=== PATIENT | female | born 1985 | race Caucasian/White ===

== ENCOUNTER 2018-08-25 12:59 | Emergency (ER) | payer MEDICAID ==
[2018-08-25 13:04] VITALS: BP 142/79
--- NOTE | 2018-08-25 13:16 | ER Document Report ---
ED General - General Chief Complaint: Urinary Frequency Stated Complaint: URINATION PROBLEMS Time Seen by Provider: 08/25/18 13:09 Primary Care Provider: LEW STRICKLAND CNM [NO LOCAL MD] - Follow up as needed Mode of Arrival: Ambulatory Information source: Patient Notes: Patient presents today with complaints of possible UTI. She reports she experienced urinary frequency previously but now she is having some hesitancy. She really has to make herself go. Denies pain with void denies fever vomiting diarrhea. Reports she is 8 weeks . G1, P0. Complains of some abdominal cramping. Denies vaginal pain denies vaginal discharge denies vaginal bleeding. Reports 2 weeks ago when she wiped herself she did notice some blood at that time but none since that time. She has been to the health department is scheduled to be seen again next week. Denies trauma. Denies back and flank pain. TRAVEL OUTSIDE OF THE [place] IN LAST 30 DAYS: No - HPI Onset: Other Onset/Duration: Persistent Quality of pain: Cramping Severity: Mild Pain Level: 2 Associated symptoms: None Exacerbated by: Denies Relieved by: Denies Similar symptoms previously: No Recently seen / treated by doctor: No - Related Data Allergies/Adverse Reactions: No Known Allergies Allergy (Verified 08/25/18 13:00) Past Medical History - General Information source: Patient - Social History Smoking Status: Current Every Day Smoker Chew tobacco use (# tins/day): No Frequency of alcohol use: None Drug Abuse: None Lives with: Family Family History: None Patient has suicidal ideation: No Patient has homicidal ideation: No - Medical History Medical History: Negative Renal/ Medical History: Denies: Hx Peritoneal Dialysis Surgical Hx: Negative Review of Systems - Review of Systems Notes: Review HPI for review of systems., All other systems negative Physical Exam - Vital signs Vitals: Temp Pulse Resp BP Pulse Ox 98.2 F 75 18 142/79 H 98 08/25/18 13:03 08/25/18 13:03 08/25/18 13:03 08/25/18 13:03 08/25/18 13:03 - Notes Notes: PHYSICAL EXAMINATION: GENERAL: Well-appearing and in no acute distress HEAD: Atraumatic, normocephalic. EYES: Pupils equal round , extraocular movements intact, sclera anicteric, conjunctiva are normal. ENT: nares patent, Moist mucous membranes. NECK: Normal range of motion, supple without lymphadenopathy LUNGS: CTAB and equal. No wheezes rales or rhonchi. HEART: Regular rate and rhythm without murmurs ABDOMEN: Soft, no tenderness. No guarding, no rebound BACK: Denies back pain, denies flank pain, no pain with palpations EXTREMITIES: Normal range of motion, NEUROLOGICAL: Cranial nerves grossly intact. Normal sensory/motor exams. PSYCH: Normal mood, normal affect. SKIN: Warm, Dry, normal turgor, no rashes or lesions noted Course - Re-evaluation Re-evalutation: 08/25/18 15:16 Labs unremarkable UA negative. Ultrasound shows 5-week 6-day gestational sac, no embryo, subchorionic bleed, Patient instructed on ultrasound results, she was instructed on negative urinary tract infection. She patient was instructed on the importance of follow-up for the repeat hCG. Patient does have an appointment with the health department August 31. She verbalized understanding to all instructions. Dictation of this chart was performed using voice recognition software; therefo re, there may be some unintended grammatical errors. - Vital Signs Vital signs: Temp Pulse Resp BP Pulse Ox 98.2 F 75 18 142/79 H 98 08/25/18 13:03 08/25/18 13:03 08/25/18 13:03 08/25/18 13:03 08/25/18 13:03 - Laboratory Result Diagrams: 08/25/18 13:31 08/25/18 13:31 Laboratory results interpreted by me: 08/25/18 08/25/18 13:31 13:31 AST 40 H Beta HCG, Quant 5072.70 H Urine Urobilinogen 2.0 H Urine Ascorbic Acid 40 H - Diagnostic Test Radiology reviewed: Image reviewed, Reports reviewed - EXAM DESCRIPTION: U/S OB TRANSVAGINAL W/O DOP COMPLETED DATE/TIME: 08/25/2018 2:01 pm REASON FOR STUDY: preg cramping COMPARISON: None. TECHNIQUE: Endovaginal static and realtime grayscale images acquired of the pelvis. Additional selected spectral and color Doppler images recorded. All images stored on PACs. bHCG: None available CLINICAL DATES: Last menses 07/02/2018 LIMITATIONS: None. FINDINGS: An intrauterine gestational sac is present. By mean sac diameter, estimated age is 5 weeks 6 days. Yolk sac is identified, embryo not yet seen. SUBCHORIONIC BLEED: Yes SIZE OF BLEED: 3 x 1 cm in size UTERUS: No masses. No anomalies. Uterus is 9 x 5 x 4 cm in size. CERVICAL LENGTH: Closed, 2.4 cm in length. RIGHT ADNEXA: Normal ovary with normal vascular flow. Right ovary 3.7 x 2.5 x 2.5 cm in size. No adnexal free fluid. No adnexal masses. LEFT ADNEXA: Normal ovary with normal vascular flow. Left ovary 3.3 x 2.7 x 2.2 cm in size. No adnexal free fluid. No adnexal masses. FREE FLUID: None. OTHER: No other significant finding. IMPRESSION: Intrauterine gestational sac is present, containing a yolk sac. Embryo not yet seen. Estimated age 5 weeks 6 days. Moderate size subchorionic hemorrhage. Trimester of : First - 0 to 13 weeks. TECHNICAL DOCUMENTATION: JOB ID: [id number] [employer]- All Rights Reserved Reading location - IP/workstation name: [email or web address] [id number] Dictated by: RIA ABRAHAM MD [id number] CC: ÓSCAR MABRY NP > 08/25/18 1419 Principal Sulky Driver Name: RIA ABRAHAM Provider ID: [id number] Discharge - Discharge Clinical Impression: Dysuria Qualifiers: Weeks of gestation: less than 8 weeks Qualified Code(s): Z3A.01 - Less than 8 weeks gestation of Condition: Stable Disposition: HOME, SELF-CARE Instructions: [facility], [facility] Department, ([facility]) Additional Instructions: *You have been evaluated for urinary hesitancy, The ultrasound showed a single intrauterine gestational sac estimated age 5 weeks 6 days with a moderate sized subchorionic hemorrhage Return to the emergency department for a follow-up test on August 27. You may contact the culture nurse 2 hours after the test at [phone] for your results. Your hCG level today was 5072 *Follow up with the health department as scheduled august 31 *Return to ED for worsening condition, changes, needs, vaginal bleeding abdominal pain fever concerns Monitor your blood pressure. Your blood pressure was elevated today. This may be because you were anxious, in pain or because you need medication. It is imp ortant to follow up with your primary care provider for full evaluation. Forms: Elevated Blood Pressure, Follow-Up Laboratory Testing Referrals: LEW STRICKLAND CNM [NO LOCAL MD] - Follow up as needed
[2018-08-25 13:57] LABS: ABSOLUTE BASOPHILS # (AUTO) 0.1 10^3/uL (0.0-0.2); ABSOLUTE EOSINOPHILS # (AUTO) 0.3 10^3/uL (0.0-0.6); ABSOLUTE LYMPHOCYTES (AUTO) 2.8 10^3/uL (0.5-4.7); ABSOLUTE MONOCYTES (AUTO) 0.7 10^3/uL (0.1-1.4); ABSOLUTE NEUT (AUTO) 4.3 10^3/uL (1.7-8.2); BASOPHILS % (AUTO) 1.1 % (0-2); EOSINOPHILS % (AUTO) 3.6 % (0-6); HEMATOCRIT 41.5 % (36.0-47.0); HEMOGLOBIN 14.2 g/dL (12.0-15.5); LYMPHOCYTES % (AUTO) 34.2 % (13-45); MEAN CORPUSCULAR HEMOGLOBIN 29.9 pg (27.0-33.4); MEAN CORPUSCULAR HGB CONC 34.3 g/dL (32.0-36.0); MEAN CORPUSCULAR VOLUME 87 fl (80-97); MONOCYTES % (AUTO) 8.1 % (3-13); PLATELET COUNT 269 10^3/uL (150-450); RED BLOOD COUNT 4.76 10^6/uL (3.72-5.28); RED CELL DISTRIBUTION WIDTH 12.8 % (11.5-14.0); TOTAL CELLS COUNTED % (AUTO) 100 %; WHITE BLOOD COUNT 8.1 10^3/uL (4.0-10.5)
[2018-08-25 14:12] LABS: ALANINE AMINOTRANSFERASE 44 U/L (9-52); ALBUMIN 3.6 g/dL (3.5-5.0); ALKALINE PHOSPHATASE 85 U/L (38-126); ANION GAP 7 (5-19); ASPARTATE AMINO TRANSFERASE 40 U/L (14-36); BILIRUBIN,DIRECT 0.3 mg/dL (0.0-0.4); BILIRUBIN,TOTAL 0.4 mg/dL (0.2-1.3); BLOOD UREA NITROGEN 9 mg/dL (7-20); CALCIUM 8.9 mg/dL (8.4-10.2); CARBON DIOXIDE 26 mmol/L (22-30); CHLORIDE 104 mmol/L (98-107); GLUCOSE 89 mg/dL (75-110); POTASSIUM 4.5 mmol/L (3.6-5.0); SODIUM 137.1 mmol/L (137-145); TOTAL PROTEIN 6.6 g/dL (6.3-8.2)
--- NOTE | 2018-08-25 14:19 | RADIOLOGY REPORT (SQ) ---
EXAM DESCRIPTION: U/S OB TRANSVAGINAL W/O DOP COMPLETED DATE/TIME: 08/25/2018 2:01 pm REASON FOR STUDY: preg cramping COMPARISON: None. TECHNIQUE: Endovaginal static and realtime grayscale images acquired of the pelvis. Additional selec nikhil spectral and color Doppler images recorded. All images stored on PACs. bHCG: None available CLINICAL DATES: Last menses 07/02/2018 LIMITATIONS: None. FINDINGS: An intrauterine gestational sac is present. By mean sac diameter, estimated age is 5 week s 6 days. Yolk sac is identified, embryo not yet seen. SUBCHORIONIC BLEED: Yes SIZE OF BLEED: 3 x 1 cm in size UTERUS: No masses. No anomalies. Uterus is 9 x 5 x 4 cm in size. CERVICAL LENGTH: Closed, 2.4 cm in length. RIGHT ADNEXA: Normal ovary with normal vascular flow. Right ovary 3.7 x 2.5 x 2.5 cm in size. No adnexal free fluid. No adnexal masses. LEFT ADNEXA: Normal ovary with normal vascular flow. Left ovary 3.3 x 2.7 x 2.2 cm in size. No adnexal free fluid. No adnexal masses. FREE FLUID: None. OTHER: No other significant finding. IMPRESSION: Intrauterine gestational sac is present, containing a yolk sac. Embryo not yet seen. E stimated age 5 weeks 6 days. Moderate size subchorionic hemorrhage. Trimester of : First - 0 to 13 weeks. TECHNICAL DOCUMENTATION: JOB ID: [id number] [employer]- All Rights Reserved rev-07/07 Reading location - IP/workstation name: [email or web address]
[2018-08-25 14:55] LABS: APPEARANCE,URINE CLEAR; BILIRUBIN,URINE NEGATIVE (NEGATIVE); COLOR,URINE LIGHT YELLOW; GLUCOSE, URINE NEGATIVE (NEGATIVE)
[2018-08-25 14:56] LABS: KETONES,URINE NEGATIVE (NEGATIVE); LEUKOCYTE ESTERASE,URINE NEGATIVE (NEGATIVE); NITRITE,URINE NEGATIVE (NEGATIVE); PROTEIN,URINE NEGATIVE (NEGATIVE); URINE SPECIFIC GRAVITY 1.015
== END 2018-08-25 15:23 | disposition home or self-care (01) ==
LOC: ER 12:59
DX: O26.891 Other specified pregnancy related conditions, first trimester (principal); R10.9 Unspecified abdominal pain; R35.0 Frequency of micturition; R39.11 Hesitancy of micturition; O99.331 Smoking (tobacco) complicating pregnancy, first trimester; Z3A.01 Less than 8 weeks gestation of pregnancy
CPT/HCPCS: 36415; 76817; 80053; 81001; 84702; 85025; 99284

== ENCOUNTER 2018-12-27 17:10 | Emergency (ER) | payer MEDICAID ==
--- NOTE | 2018-12-27 18:10 | ER Document Report ---
ED Medical Screen (RME) - General Chief Complaint: Feet Swelling Stated Complaint: HAND/FEET SWELLING Time Seen by Provider: 12/27/18 18:08 Mode of Arrival: Ambulatory Information source: Patient Notes: 33-year-old female presented to ED for complaint of swelling to the hands and feet bilaterally. She states they have been swelling off and on for 3 years but they are worse today than normal. She states she when she went to the doctor the last time it was for miscarriage and they were not swollen at that time. She is alert and oriented respirations regular nonlabored speaking in full s entences. She states when she did go to her doctor about her feet they told her there was nothing wrong with her feet. She states she smokes about 1/2 pack a day no drugs or alcohol. She states she does not have any past medical history. I have greeted and performed a rapid initial assessment of this patient. A comprehensive ED assessment and evaluation of the patient, analysis of test results and completion of medical decision making process will be conducted by an additional ED providers. TRAVEL OUTSIDE OF THE [place] IN LAST 30 DAYS: No - Related Data Allergies/Adverse Reactions: No Known Allergies Allergy (Verified 09/19/18 13:10) Past Medical History Renal/ Medical History: Denies: Hx Peritoneal Dialysis Physical Exam - Vital signs Vitals: Temp Pulse Resp BP Pulse Ox 98.5 F 70 16 147/80 H 95 12/27/18 17:14 12/27/18 17:14 12/27/18 17:14 12/27/18 17:14 12/27/18 17:14 Course - Vital Signs Vital signs: Temp Pulse Resp BP Pulse Ox 98.5 F 70 16 147/80 H 95 12/27/18 17:14 12/27/18 17:14 12/27/18 17:14 12/27/18 17:14 12/27/18 17:14
--- NOTE | 2018-12-27 18:50 | RADIOLOGY REPORT (SQ) ---
EXAM DESCRIPTION: CHEST 2 VIEWS COMPLETED DATE/TIME: 12/27/2018 6:31 pm REASON FOR STUDY: pedal edema COMPARISON: None. EXAM PARAMETERS: NUMBER OF VIEWS: two views TECHNIQUE: Digital Frontal and Lateral radiographic views of the chest acquired. RADIATION DOSE: NA LIMITATIONS: none FINDINGS: LUNGS AND PLEURA: No opacities, masses or pneumothorax. No pleural effusion. MEDIASTINUM AND HILAR STRUCTURES: No masses or contour abnormalities. HEART AND VASCULAR STRUCTURES: Heart normal size. No evidence for failure. BONES: No acute findings. HARDWARE: None in the chest. OTHER: No other significant finding. IMPRESSION: NO ACUTE RADIOGRAPHIC FINDING IN THE CHEST. TECHNICAL DOCUMENTATION: JOB ID: [id number] [employer]- All Rights Reserved Reading location - IP/workstation name: [email or web address]
[2018-12-27 19:08] LABS: ABSOLUTE BASOPHILS # (AUTO) 0.1 10^3/uL (0.0-0.2); ABSOLUTE EOSINOPHILS # (AUTO) 0.3 10^3/uL (0.0-0.6); ABSOLUTE LYMPHOCYTES (AUTO) 3.1 10^3/uL (0.5-4.7); ABSOLUTE MONOCYTES (AUTO) 0.6 10^3/uL (0.1-1.4); ABSOLUTE NEUT (AUTO) 3.2 10^3/uL (1.7-8.2); BASOPHILS % (AUTO) 1.1 % (0-2); EOSINOPHILS % (AUTO) 4.2 % (0-6); HEMATOCRIT 43.3 % (36.0-47.0); LYMPHOCYTES % (AUTO) 42.8 % (13-45); MEAN CORPUSCULAR HEMOGLOBIN 30.1 pg (27.0-33.4); MEAN CORPUSCULAR HGB CONC 34.7 g/dL (32.0-36.0); MEAN CORPUSCULAR VOLUME 87 fl (80-97); MONOCYTES % (AUTO) 8.3 % (3-13); PLATELET COUNT 254 10^3/uL (150-450); RED CELL DISTRIBUTION WIDTH 12.7 % (11.5-14.0); SEGMENTED NEUTROPHILS % (AUTO) 43.6 % (42-78); TOTAL CELLS COUNTED % (AUTO) 100 %; WHITE BLOOD COUNT 7.3 10^3/uL (4.0-10.5)
[2018-12-27 19:19] LABS: APPEARANCE,URINE SLIGHTLY-CLOUDY; BILIRUBIN,URINE NEGATIVE (NEGATIVE); COLOR,URINE YELLOW; GLUCOSE, URINE NEGATIVE (NEGATIVE); KETONES,URINE NEGATIVE (NEGATIVE); PROTEIN,URINE NEGATIVE (NEGATIVE); URINE SPECIFIC GRAVITY 1.018
[2018-12-27 19:30] LABS: ALKALINE PHOSPHATASE 108 U/L (38-126); ANION GAP 10 (5-19); ASPARTATE AMINO TRANSFERASE 62 U/L (14-36); BILIRUBIN,DIRECT 0.3 mg/dL (0.0-0.4); BILIRUBIN,TOTAL 0.5 mg/dL (0.2-1.3); BLOOD UREA NITROGEN 9 mg/dL (7-20); CALCIUM 9.3 mg/dL (8.4-10.2); CARBON DIOXIDE 26 mmol/L (22-30); CHLORIDE 105 mmol/L (98-107); GLUCOSE 82 mg/dL (75-110); POTASSIUM 4.2 mmol/L (3.6-5.0); TOTAL PROTEIN 7.4 g/dL (6.3-8.2)
--- NOTE | 2018-12-27 21:09 | ER Document Report ---
ED General - General Chief Complaint: Swelling Stated Complaint: HAND/FEET SWELLING Time Seen by Provider: 12/27/18 18:08 Primary Care Provider: [facility] [Provider Group] - Follow up in 3-5 days Mode of Arrival: Ambulatory TRAVEL OUTSIDE OF THE [place] IN LAST 30 DAYS: No - HPI Notes: 33-year-old female to the emergency department with complaints of several days of bilateral hand and leg swelling. She states that her legs feel tight. She denies any fevers or chills. She states this happened before but it has never been this severe. Denies any chest pain, shortness of breath, recent travel, malignancy, history of DVT, coagulopathy, oral contraceptive use. She admits that she has recently changed jobs and is sitting at a desk for long periods of time. - Related Data Allergies/Adverse Reactions: No Known Allergies Allergy (Verified 09/19/18 13:10) Past Medical History - General Information source: Patient - Social History Smoking Status: Current Every Day Smoker Frequency of alcohol use: None Drug Abuse: None Lives with: Spouse/Significant other Family History: Reviewed & Not Pertinent Patient has suicidal ideation: No Patient has homicidal ideation: No Renal/ Medical History: Denies: Hx Peritoneal Dialysis Review of Systems - Review of Systems Constitutional: denies: Chills, Fever EENT: No symptoms reported Cardiovascular: See HPI, Edema. denies: Chest pain, Palpitations, Heart racing, Orthopnea, Dyspnea, Syncope, Dizziness, Lightheaded Respiratory: denies: Cough, Short of breath Gastrointestinal: denies: Abdominal pain, Diarrhea, Nausea, Vomiting - No Musculoskeletal: Leg swelling, Ankle swelling Skin: No symptoms reported Hematologic/Lymphatic: No symptoms reported Neurological/Psychological: No symptoms reported -: Yes All other systems reviewed and negative Physical Exam - Vital signs Vitals: Temp Pulse Resp BP Pulse Ox 98.5 F 70 16 147/80 H 95 12/27/18 17:14 12/27/18 17:14 12/27/18 17:14 12/27/18 17:14 12/27/18 17:14 Interpretation: Normal - General General appearance: Appears well, Alert - HEENT Head: Normocephalic, Atraumatic Eyes: Normal Pupils: PERRL - Respiratory Respiratory status: No respiratory distress Chest status: Nontender Breath sounds: Normal Chest palpation: Normal - Cardiovascular Rhythm: Regular Heart sounds: Normal auscultation Murmur: No - Abdominal Inspection: Normal Distension: No distension Bowel sounds: Normal Tenderness: Nontender Organomegaly: No organomegaly - Back Back: Normal, Nontender - Extremities General upper extremity: Normal inspection, Nontender, Edema - There is mild hand swelling bilaterally. Again without any erythema, streaking lymphangitis., Normal color, Normal ROM, Normal temperature General lower extremity: Normal inspection, Nontender, Edema - There is nonpitting edema to bilateral feet and legs. There is no erythema or warmth. There is no streaking lymphangitis. There is no tenderness to palpation to the back posterior calves. Full range of motion in all extremities against resistance with 5 out of 5 strength. Pulses are intact and equal throughout, Normal color, Normal ROM, Normal temperature, Normal weight bearing. No: Cristela's sign - Neurological Neuro grossly intact: Yes Cognition: Normal Orientation: AAOx4 [place] Coma Scale Eye Opening: Spontaneous [place] Coma Scale Verbal: Oriented [place] Coma Scale Motor: Obeys Commands [place] Coma Scale Total: 15 Speech: Normal Motor strength normal: LUE, RUE, LLE, RLE Sensory: Normal - Psychological Associated symptoms: Normal affect, Normal mood - Skin Skin Temperature: Warm Skin Moisture: Dry Skin Color: Normal Course - Re-evaluation Re-evalutation: 12/29/18 Impression: Dependent edema. Suspect this is due to patient's recent new job where she is less mobile. Also suspect it may be diet related. She has reassuring labs. She is not in heart failure. We will send home with low-dose diuretic and REY hose. Encouraged to follow-up with her primary care physician. Encouraged to return if she has any worsening symptoms or any concerns. She agrees with the plan. - Vital Signs Vital signs: Temp Pulse Resp BP Pulse Ox 97.7 F 68 16 122/76 98 12/27/18 22:18 12/27/18 22:18 12/27/18 17:14 12/27/18 22:18 12/27/18 22:18 - Laboratory Result Diagrams: 12/27/18 18:55 12/27/18 18:55 Laboratory results interpreted by me: 12/27/18 12/27/18 18:55 18:55 AST 62 H Urine Urobilinogen 4.0 H Leukocyte Esterase Rfl TRACE H Urine Ascorbic Acid 20 H - Diagnostic Test Radiology reviewed: Image reviewed, Reports reviewed Discharge - Discharge Clinical Impression: Dependent edema, Localized swelling of both lower legs Condition: Stable Disposition: HOME, SELF-CARE Instructions: Dependent Edema ([facility]) Additional Instructions: WEAR COMPRESSION HOSE. RETURN IF WORSE. TAKE MEDICINES PRESCRIBED. Prescriptions: Hydrochlorothiazide [Hydrodiuril 25 mg Tablet] 25 mg PO DAILY #7 tablet Referrals: [facility] [Provider Group] - Follow up in 3-5 days
[2018-12-27 22:21] VITALS: BP 122/76
== END 2018-12-27 21:55 | disposition home or self-care (01) ==
LOC: ER 17:10
DX: R60.9 Edema, unspecified (principal); M79.89 Other specified soft tissue disorders; F17.200 Nicotine dependence, unspecified, uncomplicated
CPT/HCPCS: 36415; 71046; 80053; 81001; 85025; 87086; 99283

== ENCOUNTER 2019-01-24 16:21 | Emergency (ER) | payer MEDICAID ==
[2019-01-24] MEDS ORDERED: KETOROLAC TROMETHAMINE 60 MG/2 ML SDV IM ONE (17:16)
--- NOTE | 2019-01-24 17:40 | RADIOLOGY REPORT (SQ) ---
EXAM DESCRIPTION: L SPINE WHOLE COMPLETED DATE/TIME: 01/24/2019 5:26 pm REASON FOR STUDY: lbp, new onset COMPARISON: None. NUMBER OF VIEWS: Five views including obliques. TECHNIQUE: AP, lateral, oblique, and sacral radiographic images acquired of the lumbar spine. LIMITATIONS: None. FINDINGS: MINERALIZATION: Normal. SEGMENTATION: Normal. No transitional anatomy. ALIGNMENT: Decreased lordosis. VERTEBRAE: No fracture. Spina bifida occulta at at S1. DISCS: Preserved height. No significant osteophytes or end plate irregularity. POSTERIOR ELEMENTS: Pedicles and facets are intact. No pars defect or posterior arch defects. HARDWARE: None in the spine. PARASPINAL SOFT TISSUES: Normal. PELVIS: Intact as visualized. No fractures or worrisome bone lesions. SI joints intact. OTHER: Large amount retained stool IMPRESSION: No acute findings. There is decreased lordosis. There is spina bifida occulta at S1. TECHNICAL DOCUMENTATION: JOB ID: [id number] [employer]- All Rights Reserved Reading location - IP/workstation name: [email or web address]
--- NOTE | 2019-01-24 18:14 | ER Document Report ---
HPI - HPI Time Seen by Provider: 01/24/19 17:06 Pain Level: 3 Notes: 33-year-old female presents to the ED for evaluation of right-sided lower back pain that is been bothering her for the last couple of days, patient states she does have a chronic issue with her lower back pain however she has never had any diagnostic imaging. Patient denies any trauma to her lower back. Patient states she has been seen intermittently for her back pain, told she had a muscle strain. Worse with walking, better with sitting. Has tried [id number] ibuprofen yesterday without full relief. Denies fevers, chills, chest pain,palpitations, shortness of breath, dyspnea, nausea, vomiting, diarrhea, abdominal pain, hematuria,blurred vision, double vision, loss of vision, speech changes, LH, dizziness, syncope, headaches, wheezing, ST, URI, neck pain, weakness, bowel or bladder dysfunction, saddle anesthesia, numbness or tingling in bilateral upper or lower extremities equally, muscle paralysis, weakness in bilateral upper or lower extremities equally or rash. - REPRODUCTIVE Reproductive: DENIES: : Past Medical History - General Information source: Patient - Social History Smoking Status: Never Smoker Chew tobacco use (# tins/day): No Frequency of alcohol use: None Drug Abuse: None Family History: Reviewed & Not Pertinent Patient has suicidal ideation: No Patient has homicidal ideation: No Renal/ Medical History: Denies: Hx Peritoneal Dialysis Vertical Provider Document - CONSTITUTIONAL Agree With Documented VS: Yes Exam Limitations: No Limitations General Appearance: WD/WN Notes: PHYSICAL EXAMINATION: reviewed vital signs by RN GENERAL: Well-appearing, well-nourished and in no acute distress. HEAD: Atraumatic, normocephalic. EYES: Pupils equal round and reactive to light, extraocular movements intact, conjunctiva are normal. ENT: Nares patent, oropharynx clear without exudates. Moist mucous membranes. NECK: Normal range of motion, supple without lymphadenopathy LUNGS: Breath sounds clear to auscultation bilaterally and equal. No wheezes rales or rhonchi. HEART: Regular rate and rhythm without murmurs ABDOMEN: Soft, nontender, nondistended abdomen. No guarding, no rebound. No masses appreciated. Female : deferred Musculoskeletal: Normal range of motion, no pitting or edema. No cyanosis.Pain with flexion and extension at 30 degrees, positive straight leg test on right. Normal hip rotation. DTR +2 in BLE equally. Strength 5 out of 5 both distally and proximally to bilateral lower extremities normal motor and sensory function in BLE equally. Distal pulses + 2 BLE equally. Noted paraspinal tenderness near L2 and L3. Strength 5 out of 5 in bilateral lower extremities equally. noted spinal tenderness at L2. No CVA tenderness bilaterally. Femoral pulses + 2 bilaterally and equally. No abrasions, scars, lacerations, ecchymosis of any recent trauma. normal gait. NEUROLOGICAL: Cranial nerves grossly intact. Normal speech, normal gait. Normal sensory, motor exams PSYCH: Normal mood, normal affect. SKIN: Warm, Dry, normal turgor, no rashes or lesions noted. - INFECTION CONTROL TRAVEL OUTSIDE OF THE [place] IN LAST 30 DAYS: No Course - Re-evaluation Re-evalutation: 01/24/19 17:27 Afebrile vital stable no distress. Nurse's notes reviewed. lower back pain without any signs of spinal cord compression, cauda equina syndrome , infection, aneurysm or any other serious etiology patient is neurologically intact. Given extremely low risk of these diagnoses further testing and evaluation of these possibilities do not appear to be indicated at this time the patient has been instructed to return if the symptoms worsen or change in anyway. X-ray lumbar spine shows no acute fracture dislocation, showed spina bifida occulta at S1. Patient given 60 mg Toradol IM. Advised to apply heat 20 minutes on 20 minutes off several times a day. To use muscle relaxers as directed. After performing a Medical Screening Examination, I estimate there is LOW risk for EXPANDING OR RUPTURED ABDOMINAL AORTIC ANEURYSM, CAUDA EQUINA SYNDROME, EPIDURAL MASS ABSCESS OR LESION(S), OSTEOMYELITIS,PERSONAL HISTORY OF CANCER, IMMUNOSUPPERSSSION, HISTORY OF IV DRUG USE, FRACTURE, CORD COMPERSSION, CANCER, RETROPERITONEAL BLEED, SPINAL EPIDURAL HEMATOMA, or HERNIATED DISK CAUSING SEVERE SPINAL STENOSIS, thus I consider the discharge disposition reasonable. I have reevaluated this patient multiple times and no significant life threatening changes are noted. The patient and I have discussed the diagnosis and risks, and we agree with discharging home and close follow-up. We also discussed returning to the Emergency Department immediately if new or worsening symptoms occur with the understanding that symptoms and presentations can change. We have discussed the symptoms which are most concerning (e.g., saddle anesthesia, urinary or bowel incontinence or retention, changing or worsening pain) that necessitate immediate return. 01/24/19 18:18 - Vital Signs Vital signs: Temp Pulse Resp BP Pulse Ox 98 F 81 18 120/79 96 01/24/19 17:06 01/24/19 17:06 01/24/19 17:06 01/24/19 17:06 01/24/19 17:06 Discharge - Discharge Clinical Impression: Lower back pain, Spina bifida occulta Condition: Stable Disposition: HOME, SELF-CARE Instructions: Low Back Pain ([facility]), Muscle Strain ([facility]), Warm Packs ([facility]) Additional Instructions: X-ray of your lower spine was negative for acute fracture. It does show a chronic spina bifida occulta this is likely from . Advised to follow-up with your primary care provider and payer specialist. Advised not to drink alcohol, operate heavy machinery or drive while taking muscle relaxers and cause sedation or impairment of cognitive function. Take naproxen as needed. Apply heat 20 minutes on 20 minutes off several times a day. Please do back stretches. Return immediately for any new or worsening symptoms. Follow up with primary care provider, call tomorrow to make followup appointment. Prescriptions: Naproxen 500 mg PO BID #10 tablet Methocarbamol [Robaxin 500 mg Tablet] 500 mg PO QID PRN #15 tablet PRN Reason: Forms: Return to Work Referrals: FLORES TUBBS MD [COMMUNITY BASED STAFF] - Follow up as needed EDWARD MARIE MD [ACTIVE PROVISIONAL STAFF] - Follow up as needed
[2019-01-24 19:03] VITALS: BP 115/56
== END 2019-01-24 19:03 | disposition home or self-care (01) ==
LOC: ER 16:21
DX: Q76.0 Spina bifida occulta (principal); M54.5 Low back pain
CPT/HCPCS: 99283; 96372; 72110; J1885

== ENCOUNTER → 2019-04-29 | Outpatient (CLI) | payer MEDICAID ==
--- NOTE | 2019-04-29 08:54 | RADIOLOGY REPORT (SQ) ---
EXAM DESCRIPTION: U/S ABDOMEN LIMITED W/O DOP COMPLETED DATE/TIME: 04/29/2019 8:36 am REASON FOR STUDY: EPIGASTRIC PAIN (R10.13) R10.13 EPIGASTRIC PAIN COMPARISON: 08/25/2018 TECHNIQUE: Dynamic and static grayscale images acquired of the abdomen and recorded on PACS. Additio nal selected color Doppler and spectral images recorded. LIMITATIONS: Some structures poorly visualized. FINDINGS: PANCREAS: Nonvisualized. LIVER: Normal size. Increased echogenicity. No focal lesions. LIVER VASCULATURE: Normal directional flow of the main portal vein and hepatic veins. GALLBLADDER: No stones. Normal wall thickness. No pericholecystic fluid. ULTRASOUND-DETECTED GODINEZ'S SIGN: Negative. INTRAHEPATIC DUCTS AND COMMON DUCT: CBD and intrahepatic ducts normal caliber. No filling defects. INFERIOR VENA CAVA: Normal flow. AORTA: No aneurysm. RIGHT KIDNEY: Normal size measuring 10.5 cm. Normal echogenicity. No solid or suspicious masses. No hydronephrosis. No calcifications. PERITONEAL AND RIGHT PLEURAL SPACE: No ascites or effusions. OTHER: No other significant findings. IMPRESSION: Hepatic steatosis. Otherwise, unremarkable right upper quadrant ultrasound as visualize d. TECHNICAL DOCUMENTATION: JOB ID: [id number] 2010 [employer]- All Rights Reserved Reading location - IP/workstation name: [email or web address]
== END ==
LOC: RAD 07:29
PROVIDERS: ATTEND Internal Medicine Gastroenterology
DX: R10.13 Epigastric pain (principal); K76.0 Fatty (change of) liver, not elsewhere classified
CPT/HCPCS: 76705

== ENCOUNTER 2020-01-25 13:09 | Emergency (ER) | payer MEDICAID ==
[2020-01-25] MEDS ORDERED: OXYCODONE-ACETAMINOPHEN 5-325 MG TABLET PO ONE (13:48)
[2020-01-25] MEDS ORDERED: NORMAL SALINE 1000 ML 1,000 ML IV ONE (14:45)
[2020-01-25] MEDS ORDERED: KETOROLAC TROMETHAMINE INJ/PF 30 MG/1 ML SDV IV ONE (14:46)
[2020-01-25] MEDS ORDERED: LORAZEPAM INJ 2 MG/1 ML VIAL IV ONE (14:47)
[2020-01-25] MEDS ORDERED: KETOROLAC TROMETHAMINE 60 MG/2 ML SDV IM ONE (15:14)
[2020-01-25] MEDS ORDERED: LORAZEPAM INJ 2 MG/1 ML VIAL IM ONE (15:15)
--- NOTE | 2020-01-25 15:27 | ER Document Report ---
Entered by REBECCA ANDERSON SCRIBE 01/25/20 [id number] Acting as scribe for:KRISHAN SUERO MD ED Neck/Back Problem - General Chief Complaint: Back Pain Stated Complaint: BACK PAIN Primary Care Provider: IZABEL AYALA MD [ACTIVE STAFF] - Follow up as needed Mode of Arrival: Medic Information source: Patient Notes: This 34 year old female patient with a history of spina bifida (recently given diagnosis x1 year ago) presents to the ED today via EMS with complaints of back pain that started just prior to arrival. Patient states that she was unable to get off the toilet today because she couldn't straighten out her back and her legs were weak. Denies recent injury, trauma, or trouble urinating. She received 100 mcg Fentanyl IN and a heat pack via EMS. Denies any COVID concerns including fever, chills, shortness of breath, cough, sore throat, or loss of taste/smell. TRAVEL OUTSIDE OF THE [place] IN LAST 30 DAYS: No - Related Data Allergies/Adverse Reactions: No Known Allergies Allergy (Verified 01/24/19 17:06) Past Medical History - General Information source: Patient - Social History Smoking Status: Current Every Day Smoker Chew tobacco use (# tins/day): No Smoking Education Provided: No Frequency of alcohol use: None Drug Abuse: None Lives with: Spouse/Significant other Family History: Reviewed & Not Pertinent - Medical History Medical History: Negative Surgical Hx: Negative Review of Systems - Review of Systems Constitutional: See HPI. denies: Chills, Fever EENT: See HPI. denies: Throat pain Cardiovascular: No symptoms reported Respiratory: See HPI. denies: Cough, Short of breath Gastrointestinal: No symptoms reported Genitourinary: See HPI. denies: Dysuria Female Genitourinary: No symptoms reported Musculoskeletal: See HPI, Back pain Skin: No symptoms reported Hematologic/Lymphatic: No symptoms reported Neurological/Psychological: No symptoms reported -: Yes All other systems reviewed and negative Physical Exam - Vital signs Vitals: Temp Pulse Resp BP Pulse Ox 98.3 F 74 18 139/64 H 100 01/25/20 13:17 01/25/20 13:17 01/25/20 13:17 01/25/20 13:17 01/25/20 13:17 - General General appearance: Alert In distress: None - HEENT Head: Normocephalic, Atraumatic Eyes: Normal Pupils: PERRL - Respiratory Respiratory status: No respiratory distress Chest status: Nontender Breath sounds: Normal Chest palpation: Normal - Cardiovascular Rhythm: Regular Heart sounds: Normal auscultation Murmur: No Friction rub: No Gallop: None auscultated - Abdominal Inspection: Obese Distension: No distension Bowel sounds: Normal Tenderness: Nontender - Abdomen soft Organomegaly: No organomegaly - Back Back: Other - No midline tenderness to palpation. Patient demonstrated how she couldn't stand up straight due to her back pain. She remained in a hunched over position during examination. - Extremities General upper extremity: Normal inspection General lower extremity: Normal inspection. No: Edema - Neurological Neuro grossly intact: Yes Orientation: AAOx4 Martha Coma Scale Eye Opening: Spontaneous Martha Coma Scale Verbal: Oriented Martha Coma Scale Motor: Obeys Commands Martha Coma Scale Total: 15 Sensory: Normal - Psychological Associated symptoms: Normal affect, Normal mood - Skin Skin Temperature: Warm Skin Moisture: Dry Skin Color: Normal Course - Vital Signs Vital signs: Temp Pulse Resp BP Pulse Ox 98.3 F 73 20 139/64 H 98 01/25/20 13:19 01/25/20 13:19 01/25/20 13:19 01/25/20 13:19 01/25/20 13:19 - Laboratory Laboratory results interpreted by me: 01/25/20 15:53 Urine Protein 30 H Urine Ascorbic Acid 20 H Urine Color YELLOW 01/25/20 15:53 Urine Appearance CLOUDY 01/25/20 15:53 Urine pH 7.0 (5.0-9.0) 01/25/20 15:53 Ur Specific [place] 1.023 01/25/20 15:53 Urine Protein 30 mg/dL (NEGATIVE) H 01/25/20 15:53 Urine Glucose (UA) NEGATIVE mg/dL (NEGATIVE) 01/25/20 15:53 Urine Ketones NEGATIVE mg/dL (NEGATIVE) 01/25/20 15:53 Urine Blood NEGATIVE (NEGATIVE) 01/25/20 15:53 Urine Nitrite NEGATIVE (NEGATIVE) 01/25/20 15:53 Ur Leukocyte Esterase NEGATIVE (NEGATIVE) 01/25/20 15:53 Urine WBC (Auto) 0 /HPF 01/25/20 15:53 Urine RBC (Auto) 2 /HPF 01/25/20 15:53 Lab results shows cloudy urine otherwise no acute process urine is negative. - Diagnostic Test Radiology reviewed: Image reviewed, Reports reviewed Radiology results interpreted by me: 01/25/20 16:48 Lumbar Spine X-Ray 01/25/20 14:47 IMPRESSION: NORMAL 5 VIEW LUMBAR SPINE. Lumbar spine x-ray read as candis 5 lumbar view lumbar spine no acute process Discharge - Discharge Clinical Impression: Low back pain Condition: Stable Disposition: HOME, SELF-CARE Instructions: Muscle Strain ([facility]), Low Back Pain ([facility]) Prescriptions: Tramadol HCl [Ultram 50 mg Tablet] 50 mg PO Q6HP PRN #8 tab PRN Reason: low back pain Methocarbamol [Robaxin 500 mg Tablet] 500 mg PO QID PRN #20 tablet PRN Reason: muscle spasm Referrals: IZABEL AYALA MD [ACTIVE STAFF] - Follow up as needed JANE ROSALES DO [ACTIVE STAFF] - Follow up as needed I personally performed the services described in the documentation, reviewed and edited the documentation which was dictated to the scribe in my presence, and it accurately records my words and actions.
[2020-01-25 16:13] LABS: AMORPHOUS SEDIMENT,URINE TRACE /HPF; APPEARANCE,URINE CLOUDY; BILIRUBIN,URINE NEGATIVE (NEGATIVE); COLOR,URINE YELLOW; GLUCOSE, URINE NEGATIVE (NEGATIVE); KETONES,URINE NEGATIVE (NEGATIVE); LEUKOCYTE ESTERASE,URINE NEGATIVE (NEGATIVE); NITRITE,URINE NEGATIVE (NEGATIVE); PROTEIN,URINE 30 mg/dL (NEGATIVE); URINE SPECIFIC GRAVITY 1.023; UROBILINOGEN,URINE NEGATIVE mg/dL (<2.0)
--- NOTE | 2020-01-25 16:46 | RADIOLOGY REPORT (SQ) ---
EXAM DESCRIPTION: L SPINE WHOLE IMAGES COMPLETED DATE/TIME: 01/25/2020 4:33 pm REASON FOR STUDY: low back pain/ COMPARISON: None. NUMBER OF VIEWS: Five views including obliques. TECHNIQUE: AP, lateral, oblique, and sacral radiographic images acquired of the lumbar spine. LIMITATIONS: None. FINDINGS: MINERALIZATION: Normal. SEGMENTATION: Normal. No transitional anatomy. ALIGNMENT: Normal. VERTEBRAE: Maintained height. No fracture or worrisome bone lesion. DISCS: Preserved height. No significant osteophytes or end plate irregularity. POSTERIOR ELEMENTS: Pedicles and facets are intact. No pars defect or posterior arch defects. HARDWARE: None in the spine. PARASPINAL SOFT TISSUES: Normal. PELVIS: Intact as visualized. No fractures or worrisome bone lesions. SI joints intact. OTHER: No other significant finding. IMPRESSION: NORMAL 5 VIEW LUMBAR SPINE. TECHNICAL DOCUMENTATION: JOB ID: [id number] 2010 [employer]- All Rights Reserved Reading location - IP/workstation name: [email or web address]
[2020-01-25 17:31] VITALS: BP 109/68
== END 2020-01-25 17:31 | disposition home or self-care (01) ==
LOC: ER 13:09
DX: M54.5 Low back pain (principal); E66.9 Obesity, unspecified; F17.200 Nicotine dependence, unspecified, uncomplicated
CPT/HCPCS: 99284; 96372; 81025; 81001; 72110; J1885; J2060

== ENCOUNTER 2020-02-15 00:57 | Emergency (ER) | payer MEDICAID ==
[2020-02-15 01:21] VITALS: BP 150/93
--- NOTE | 2020-02-15 08:38 | EKG REPORT ---
SEVERITY:- ABNORMAL ECG - SINUS RHYTHM LEFT AXIS DEVIATION LEFT VENTRICULAR HYPERTROPHY : Confirmed by: Obi Wilson MD 15-Feb-2020 08:36:59
== END 2020-02-15 03:12 | disposition left against medical advice (07) ==
LOC: ER 00:57
DX: R07.9 Chest pain, unspecified (principal); Z53.21 Procedure and treatment not carried out due to patient leaving prior to being seen by health care provider
CPT/HCPCS: 93005; 93010